=== PATIENT | female | born 1985 | race American Indian/Alaskan Native ===

== ENCOUNTER 2017-11-15 13:25 | Inpatient (IN) | payer MEDICAID ==
[2017-11-15 13:30] VITALS: BMI 33.4
--- NOTE | 2017-11-15 14:54 | C.PDOC ---
History Of Present Illness 32 y/o female presents to ED sent by Dr. Salazar for further evaluation of right ear pain for [address] Salazar today who sent her to ED, denies fever, headache, vision change or any other complaints at this time. Time Seen by Provider: 11/15/17 14:01 Chief Complaint (Nursing): ENT Problem History Per: Patient History/Exam Limitations: None Onset/Duration Of Symptoms: Days Current Symptoms Are (Timing): Still Present Past Medical History Reviewed: Historical Data, Nursing Documentation, Vital Signs Vital Signs: Last Vital Signs Temp 97.7 F 11/15/17 17:10 Pulse 81 11/15/17 17:10 Resp 18 11/15/17 17:10 BP 136/76 11/15/17 17:10 Pulse Ox 97 11/15/17 17:10 - Medical History PMH: No Chronic Diseases Surgical History: No Surg Hx Family History: States: No Known Family Hx - Social History Hx Alcohol Use: No Hx Substance Use: No - Immunization History Hx Tetanus Toxoid Vaccination: Yes Hx Influenza Vaccination: Yes Hx Pneumococcal Vaccination: Yes Review Of Systems Except As Marked, All Systems Reviewed And Found Negative. Constitutional: Negative for: Fever, Chills ENT: Positive for: Ear Pain. Negative for: Ear Discharge Neurological: Negative for: Headache Physical Exam - Physical Exam Appears: Non-toxic, No Acute Distress Skin: Warm, Dry, No Rash Head: Atraumatic, Normacephalic Eye(s): bilateral: Normal Inspection Ear(s): Left: Normal, Right: Other (Right mastoid tenderness. Right TM perforation) Oral Mucosa: Moist Throat: Normal, No Erythema, No Exudate Neck: Supple Cardiovascular: Rhythm Regular Respiratory: Normal Breath Sounds, No Rales, No Rhonchi, No Wheezing Neurological/Psych: Oriented x3, Normal Speech, Normal Cognition Gait: Steady ED Course And Treatment - Laboratory Results Result Diagrams: 11/15/17 14:54 11/15/17 14:54 O2 Sat by Pulse Oximetry: 98 (ra) Pulse Ox Interpretation: Normal Medical Decision Making Medical Decision Making: case discussed with dr salazar. requests iv antibiotics admission for mastoiditis. dr griffin accepts. Disposition - Disposition Disposition: HOSPITALIZED Disposition Time: 05:00 Condition: STABLE - Clinical Impression Clinical Impression: Mastoiditis - Scribe Statement The provider has reviewed the documentation as recorded by the Edwinibjaspreet Humphrey All medical record entries made by the Edwinibjaspreet were at my direction and personally dictated by me. I have reviewed the chart and agree that the record accurately reflects my personal performance of the history, physical exam, medical decision making, and the department course for this patient. I have also personally directed, reviewed, and agree with the discharge instructions and disposition. Decision To Admit - Pt Status Changed To: Hospital Disposition Of: Inpatient - Admit Certification Admit to Inpatient:: After my assessment, the patient will require hospitalization for at least two midnights. This is because of the severity of symptoms shown, intensity of services needed, and/or the medical risk in this patient being treated as an outpatient. - InPatient: Physician Admission Certification: I certify that this patient requires 2 or more midnights of care for the following reason:: needs iv antibioics - . Bed Request Type: Regular Admitting Physician: Edil Griffin Patient Diagnosis: Mastoiditis
[2017-11-15 15:04] LABS: BASO # 0.1 K/uL (0.0-0.2); BASO % 0.7 % (0.0-2.0); EOS # 0.2 K/uL (0.0-0.7); EOS % 1.6 % (0.0-4.0); HEMOGLOBIN 12.8 g/dL (11.0-16.0); LYMPH # 2.7 K/uL (1.0-4.3); LYMPH % 28.1 % (20.0-40.0); MEAN CELL VOLUME 93.2 fL (81.0-99.0); MEAN CORPUSCULAR HEMOGLOBIN 31.5 pg (27.0-31.0); MEAN CORPUSCULAR HGB CONC 33.8 g/dL (33.0-37.0); MEAN PLATELET VOLUME 9.3 fL (7.2-11.7); MONO # 0.7 K/uL (0.0-0.8); MONO % 7.8 % (0.0-10.0); NEUT # 5.9 K/uL (1.8-7.0); NEUT % 61.8 % (50.0-75.0); RBC 4.06 Mil/uL (3.80-5.20); RED CELL DISTRIBUTION WIDTH 12.6 % (11.5-14.5); WHITE BLOOD COUNT 9.5 K/uL (4.8-10.8)
[2017-11-15 15:23] LABS: ALB/GLOB RATIO 1.3 (1.0-2.1); ALBUMIN 4.3 g/dL (3.5-5.0); ALT/SGPT 43 U/L (9-52); AST/SGOT 30 U/L (14-36); BLOOD UREA NITROGEN 9 mg/dL (7-17); CALCIUM 9.4 mg/dl (8.6-10.4); GFR AFRICAN-AMERICAN > 60; GFR NON-AFRICAN AMERICAN > 60
--- NOTE | 2017-11-15 15:51 | CT ---
Date of service: 11/15/2017 PROCEDURE: CT OF THE TEMPORAL BONES WITHOUT CONTRAST. HISTORY: Right-sided pain COMPARISON: None available. . TECHNIQUE: High resolution helical/ transaxial images of the temporal bones were obtained. Coronal and sagittal reformats were generated. Radiation dose: Total exam DLP = 90.82 mGy-cm. This CT exam was performed using one or more of the following dose reduction techniques: Automated exposure control, adjustment of the mA and/or kV according to patient size, and/or use of iterative reconstruction technique. . FINDINGS: RIGHT MIDDLE EAR: There is partial opacification of the right middle ear canal with what appears represent medial retraction of the right tympanic membrane. The ossicular chains are surrounded by soft tissue extends into the epitympanum. The drum spur and ossicular chain are intact without evidence to suggest destructive changes/cholesteatoma formation. RIGHT MASTOID AIR CELLS: Right mastoid air complex is sclerotic with opacification of the mastoid antrum with no obvious aerated mastoid air cells. Findings are consistent with chronic otitis media and mastoiditis. RIGHT INTERNAL AUDITORY CANAL: Normal. . RIGHT EXTERNAL AUDITORY CANAL: Normal. . RIGHT VESTIBULAR AND COCHLEAR AQUEDUCT: Normal. . OTHER FINDINGS: None. . LEFT MIDDLE EAR: The left mastoid air complex is sclerotic and underpneumatized as well. Some minimal linear on soft tissue present within the middle ear canal. Ossicular chain and drum spur intact. Mastoid antrum is aerated. . LEFT INNER EAR: Cochlea: Normal. . Semicircular canals: Normal. . LEFT MASTOID AIR CELLS: Normal. . LEFT INTERNAL AUDITORY CANAL: Normal. . LEFT EXTERNAL AUDITORY CANAL: Normal. LEFT VESTIBULAR AND COCHLEAR AQUEDUCT: Normal. . OTHER FINDINGS: None. . IMPRESSION: Findings are consistent with chronic otitis media/mastoiditis as described. No destructive changes of the drum spur or ossicular chain.
[2017-11-15] MEDS ORDERED: Clindamycin 600mg/50ml D5W 600 MG/50 ML VIAL IVPB SCH (16:15)
[2017-11-15] MEDS ORDERED: Clindamycin 600mg/50ml NS 600 MG/50 ML BAG IVPB ONE (16:45)
[2017-11-15 17:49] VITALS: RESP 20
[2017-11-15] MEDS ORDERED: Oxycodone/Acetaminophen 5/325 mg Tab PO PRN (18:22)
[2017-11-15] MEDS ORDERED: Piperacill/Tazo 3.375gm in Dex 3.375 GM/50 ML BAG IVPB SCH (20:00)
[2017-11-15] MEDS: Clindamycin 300 MG in Sodium Chloride 0.9% 50 ML IVPB SCH (23:45)
[2017-11-16] MEDS: Clindamycin 300 MG in Sodium Chloride 0.9% 50 ML IVPB SCH ×2 (05:53→11:44)
[2017-11-16 08:16] VITALS: BP 110/67; PULSE 67; TEMP 98.1; O2SAT 98
[2017-11-16 08:51] LABS: BASO % 0.3 % (0.0-2.0); EOS # 0.2 K/uL (0.0-0.7); EOS % 2.2 % (0.0-4.0); HEMOGLOBIN 11.8 g/dL (11.0-16.0); LYMPH % 36.5 % (20.0-40.0); MEAN CELL VOLUME 94.1 fL (81.0-99.0); MEAN CORPUSCULAR HEMOGLOBIN 32.4 pg (27.0-31.0); MEAN CORPUSCULAR HGB CONC 34.4 g/dL (33.0-37.0); MEAN PLATELET VOLUME 9.4 fL (7.2-11.7); MONO # 0.8 K/uL (0.0-0.8); MONO % 9.6 % (0.0-10.0); NEUT # 4.2 K/uL (1.8-7.0); NEUT % 51.4 % (50.0-75.0); RBC 3.63 Mil/uL (3.80-5.20); RED CELL DISTRIBUTION WIDTH 12.7 % (11.5-14.5); WHITE BLOOD COUNT 8.1 K/uL (4.8-10.8)
[2017-11-16 09:02] LABS: ALB/GLOB RATIO 1.2 (1.0-2.1); ALBUMIN 3.5 g/dL (3.5-5.0); ALT/SGPT 35 U/L (9-52); AST/SGOT 24 U/L (14-36); BLOOD UREA NITROGEN 13 mg/dL (7-17); CALCIUM 8.5 mg/dl (8.6-10.4); GFR AFRICAN-AMERICAN > 60; GFR NON-AFRICAN AMERICAN > 60
[2017-11-16] MEDS ORDERED: Enoxaparin 40 mg Syringe SC SCH (10:00)
--- NOTE | 2017-11-16 12:42 | CP.PCM.PN ---
Subjective - Date & Time of Evaluation Date of Evaluation: 11/16/17 Time of Evaluation: 12:41 - Subjective Subjective: ear pain resolved, hearing loss on right ear: tm perf with mild d/c a/p: mastoiditis improving ok d/c home on PO abx f/u office 1 week Objective - Vital Signs/Intake and Output Vital Signs (last 24 hours): Temp Pulse Resp BP Pulse Ox 98.1 F 67 20 110/67 98 11/16/17 08:00 11/16/17 08:00 11/16/17 08:00 11/16/17 08:00 11/16/17 08:00 Intake and Output: 11/16/17 11/16/17 06:59 18:59 Intake Total 460 Balance 460 - Medications Medications: Current Medications Diphenhydramine HCl (Benadryl) 50 mg PO Q6H PRN PRN Reason: Itching / Pruritus Last Admin: 11/15/17 23:06 Dose: 50 mg Enoxaparin Sodium (Lovenox) 40 mg SC DAILY DANNY Last Admin: 11/16/17 11:01 Dose: 40 mg Clindamycin Phosphate 300 mg/ (Sodium Chloride) 52 mls @ 100 mls/hr IVPB Q6H DANNY PRN Reason: Protocol Last Admin: 11/16/17 11:44 Dose: 100 mls/hr Oxycodone/Acetaminophen (Percocet 5/325 Mg Tab) 1 tab PO Q4H PRN PRN Reason: Pain, moderate (4-7) Stop: 11/18/17 18:23 Last Admin: 11/15/17 20:28 Dose: 1 tab Pneumococcal Polyvalent Vaccine (Pneumovax 23 Vaccine) 0.5 ml IM .ONCE ONE Stop: 11/17/17 10:01 - Labs Labs: 11/16/17 08:41 11/16/17 08:41 PT 11.0 SECONDS (9.7-12.2) 11/15/17 14:54 INR 1.0 11/15/17 14:54 APTT 29 SECONDS (21-34) 11/15/17 14:54
--- NOTE | 2017-11-16 14:20 | CP.PCM.PN ---
Subjective - Date & Time of Evaluation Date of Evaluation: 11/16/17 Time of Evaluation: 14:18 - Subjective Subjective: Internal Medicine Progress Note - Dr Griffin Service Patient seen and examined at bedside. Per nursing no acute events overnight. Patient is feeling better, offers no complaints at this time. Patient was started on IV Clindamycin for mastoiditis. She is ambulating and tolerating diet. Denies headaches, dizziness, cp, palpitations, sob, abdominal pain, urinary symptoms, changes in bowel habits. Objective - Vital Signs/Intake and Output Vital Signs (last 24 hours): Temp Pulse Resp BP Pulse Ox 98.1 F 67 20 110/67 98 11/16/17 08:00 11/16/17 08:00 11/16/17 08:00 11/16/17 08:00 11/16/17 08:00 Intake and Output: 11/16/17 11/16/17 06:59 18:59 Intake Total 460 Balance 460 - Medications Medications: Current Medications Diphenhydramine HCl (Benadryl) 50 mg PO Q6H PRN PRN Reason: Itching / Pruritus Last Admin: 11/15/17 23:06 Dose: 50 mg Enoxaparin Sodium (Lovenox) 40 mg SC DAILY DANNY Last Admin: 11/16/17 11:01 Dose: 40 mg Clindamycin Phosphate 300 mg/ (Sodium Chloride) 52 mls @ 100 mls/hr IVPB Q6H DANNY PRN Reason: Protocol Last Admin: 11/16/17 11:44 Dose: 100 mls/hr Oxycodone/Acetaminophen (Percocet 5/325 Mg Tab) 1 tab PO Q4H PRN PRN Reason: Pain, moderate (4-7) Stop: 11/18/17 18:23 Last Admin: 11/15/17 20:28 Dose: 1 tab Pneumococcal Polyvalent Vaccine (Pneumovax 23 Vaccine) 0.5 ml IM .ONCE ONE Stop: 11/16/17 14:31 Last Admin: 11/16/17 14:07 Dose: 0.5 ml - Labs Labs: 11/16/17 08:41 11/16/17 08:41 PT 11.0 SECONDS (9.7-12.2) 11/15/17 14:54 INR 1.0 11/15/17 14:54 APTT 29 SECONDS (21-34) 11/15/17 14:54 - Constitutional Appears: Non-toxic, No Acute Distress - Head Exam Head Exam: ATRAUMATIC, NORMAL INSPECTION, NORMOCEPHALIC - Eye Exam Eye Exam: EOMI, Normal appearance Pupil Exam: NORMAL ACCOMODATION - ENT Exam ENT Exam: Mucous Membranes Moist - Neck Exam Neck Exam: Full ROM - Respiratory Exam Respiratory Exam: Clear to Ausculation Bilateral, NORMAL BREATHING PATTERN. absent: Rales, Rhonchi, Wheezes - Cardiovascular Exam Cardiovascular Exam: REGULAR RHYTHM, +S1, +S2 - GI/Abdominal Exam GI & Abdominal Exam: Soft, Normal Bowel Sounds. absent: Rigid, Tenderness - Rectal Exam Rectal Exam: Deferred - Extremities Exam Extremities Exam: Normal Inspection - Neurological Exam Neurological Exam: Alert, Awake, Oriented x3 - Psychiatric Exam Psychiatric exam: Normal Affect, Normal Mood - Skin Skin Exam: Normal Color, Warm Assessment and Plan - Assessment and Plan (Free Text) Assessment: A/P: Patient is a 32 year old female with no significant past medical history who presented to the ED from Dr Ordoñez office for right ear pain x 1 week. Right ear pain secondary to Chronic Ottitis Media/Mastoiditis -Stable, afebrile -States that pain has improved -Antibiotics: Clindamycin 300mg IV Q6H -Facial bone CT showed chronic ottitis media/mastoiditis -Per Dr Boland, patient can continue PO antibiotics and follow up with him within 1 week DISPO: Patient is medically stable for discharge home. Patient will continue Clindamycin 300mg PO Q6H x 5 days. Patient will follow up with Dr Boland within 1 week in the office. If pain returns or if experiencing worsening symptoms, patient to return to nearest ED. Plan discussed with Dr Elamir. Hanna Pereira DO PGY-2
[2017-11-16] MEDS ORDERED: Pneumococcal 23-Valent Vaccine IM ONE (14:30)
--- NOTE | 2017-11-19 07:25 | HP ---
HISTORY OF PRESENT ILLNESS: A 32-year-old female chief complaint Mastoiditis. Seen by ENT. Advised admission to hospital. Patient being discharge. PHYSICAL EXAMINATION: VITAL SIGNS: Temperature 98, pulse 90. HEENT: Within normal limits. NECK: Supple. CHEST: Symmetrical. HEART: Regular. ABDOMEN: Soft. EXTREMITIES: No edema. IMPRESSION: The patient suffers from mastoiditis. Continue IV antibiotics. Edil Griffin MD
== END 2017-11-16 15:39 | disposition home or self-care (01) | DRG 69 ==
LOC: C.ER 13:25 → C.9E 16:12 → C.3T 16:45
PROVIDERS: ADMIT Internal Medicine Pulmonary Disease; ATTEND Internal Medicine Pulmonary Disease
DX: H70.11 Chronic mastoiditis, right ear (principal); H66.91 Otitis media, unspecified, right ear; H72.91 Unspecified perforation of tympanic membrane, right ear; H91.91 Unspecified hearing loss, right ear